=== PATIENT | male | born 1945 | race Caucasian/White ===

== ENCOUNTER 2018-05-09 11:41 | Emergency (ER) | payer MEDICARE, OTHER ==
[2018-05-09 11:49] VITALS: PULSE 70; RESP 18; TEMP 98.1
--- NOTE | 2018-05-09 12:17 | ED ---
General Adult HPI - General Chief complaint: Recheck/Abnormal Lab/Rx Stated complaint: Numbness legs Time Seen by Provider: 05/09/18 11:45 Source: patient, EMS, RN notes reviewed Mode of arrival: EMS Limitations: no limitations - History of Present Illness Initial comments: This a 72-year-old male who presents emergency Department stating he had a panic attack today. Patient states she's trying to wean himself off of Klonopin cold turkey. Patient states he got up today after being up all night having a cold sweats all night because he was nervous. Patient states he started reading really fast having tingling in his fingers and hands and did not want to do so he called EMS. In the meantime he took a half of one of his 2 mg Klonopin's and states it started to take effect on the way in and currently he is asymptomatic. Patient denies any chest pain difficulty breathing or shortness of breath. Patient denies any headache patient denies numbness and weakness however he does state his fingertips and toes are tingling. Patient denies any lightheadedness or dizziness. Patient denies any near syncopal episode. Patient states he was taking 2 mg at night and a half a milligram in the morning every day and he tried to wean himself off initially by not taking any and then more recently only taking them when he felt he needs them. - Related Data Home Medications Medication Instructions Recorded Confirmed Coral-3 Fatty Acids/Fish Oil [Fish 1 cap PO HS 11/19/14 05/09/18 Oil 1,000 mg Softgel] Rosuvastatin [Crestor] 10 mg PO HS 11/19/14 05/09/18 clonazePAM [KlonoPIN] 2 mg PO HS 11/19/14 05/09/18 Omeprazole [PriLOSEC] 20 mg PO HS 07/02/15 05/09/18 Calcium Carbonate/Vitamin D3 1 tab PO HS 07/03/15 05/09/18 [Calcium 600 + Vit D Tablet] clonazePAM [KlonoPIN] 1 mg PO DAILY 07/03/15 05/09/18 Allopurinol [Zyloprim] 100 mg PO HS 05/09/18 05/09/18 Previous Rx's Medication Instructions Recorded Lisinopril [Zestril] 20 mg PO HS #30 tab 07/03/15 clonazePAM [KlonoPIN] 2 mg PO TID #9 tab 05/09/18 Allergies Allergy/AdvReac Type Severity Reaction Status Date / Time acetaminophen [From Tylenol] Allergy Rash/Hives Verified 05/09/18 12:01 Review of Systems ROS Statement: Those systems with pertinent positive or pertinent negative responses have been documented in the HPI. ROS Other: All systems not noted in ROS Statement are negative. Past Medical History Past Medical History: Asthma, Coronary Artery Disease (CAD), Hyperlipidemia, Hypertension, Osteoarthritis (OA) Additional Past Medical History / Comment(s): gi bleed 2004 ,low testosterone, occupational asthma, tendonitis History of Any Multi-Drug Resistant Organisms: None Reported Past Surgical History: Heart Catheterization Past Anesthesia/Blood Transfusion Reactions: No Reported Reaction Past Psychological History: Anxiety Smoking Status: Former smoker Past Alcohol Use History: Daily Past Drug Use History: Marijuana - Past Family History Father Family Medical History: Diabetes Mellitus General Exam - General Exam Comments Initial Comments: GENERAL: Patient is well-developed and well-nourished. Patient is nontoxic and well- hydrated and is in no acute distress. ENT: Neck is soft and supple. No significant lymphadenopathy is noted. Oropharynx is clear. Moist mucous membranes. Neck has full range of motion without eliciting any pain. EYES: The sclera were anicteric and conjunctiva were pink and moist. Extraocular movements were intact and pupils were equal round and reactive to light. Eyelids were unremarkable. PULMONARY: Unlabored respirations. Good breath sounds bilaterally. No audible rales rhonchi or wheezing was noted. CARDIOVASCULAR: There is a regular rate and rhythm without any murmurs gallops or rubs. ABDOMEN: Soft and nontender with normal bowel sounds. No palpable organomegaly was noted. There is no palpable pulsatile mass. SKIN: Skin is clear with no lesions or rashes and otherwise unremarkable. NEUROLOGIC: Patient is alert and oriented x3. Cranial nerves II through XII are grossly intact. Motor and sensory are also intact. Normal speech, volume and content. Symmetrical smile. MUSCULOSKELETAL: Normal extremities with adequate strength and full range of motion. No lower extremity swelling or edema. No calf tenderness. LYMPHATICS: No significant lymphadenopathy is noted PSYCHIATRIC: Normal psychiatric evaluation. Patient at this point in time does not appear anxious always call and coherent and very reasonable Limitations: no limitations Course Vital Signs 08/28/18 11:47 Temperature 98.1 F Pulse Rate 70 Respiratory 18 Rate Blood Pressure 103/58 O2 Sat by Pulse 99 Oximetry Medical Decision Making - Medical Decision Making Patient is without any complaints currently and states this is a classic panic attack for him and he wasn't sure his Klonopin will help him quick enough so he came into the emergency department. Disposition Clinical Impression: Panic attack Disposition: HOME SELF-CARE Condition: Good Instructions: Anxiety (ED), Panic Disorder (ED), Panic Attack (ED) Prescriptions: clonazePAM [KlonoPIN] 2 mg PO TID #9 tab Is patient prescribed a controlled substance at d/c from ED?: Yes When asked, does pt state using other controlled substances?: No If prescribed controlled substance>3 days was MAPS reviewed?: Prescribed <3 Days If opioid is for acute pain is fill amount 7 days or less?: No Referrals: None,Stated [Primary Care Provider] - 1-2 days Time of Disposition: 12:18
[2018-05-09 12:30] VITALS: BP 121/59
== END 2018-05-09 12:30 | disposition home or self-care (01) ==
LOC: EC 11:41
DX: F41.0 Panic disorder [episodic paroxysmal anxiety] (principal); I25.10 Atherosclerotic heart disease of native coronary artery without angina pectoris; E78.5 Hyperlipidemia, unspecified; I10 Essential (primary) hypertension; Z87.891 Personal history of nicotine dependence; Z79.899 Other long term (current) drug therapy; Z88.6 Allergy status to analgesic agent; Z95.818 Presence of other cardiac implants and grafts
CPT/HCPCS: 99283

== ENCOUNTER → 2018-12-28 | Outpatient (CLI) | payer MEDICARE ==
--- NOTE | 2018-12-28 14:15 | US ---
EXAMINATION TYPE: US kidneys/renal and bladder DATE OF EXAM: 12/28/2018 COMPARISON: NONE CLINICAL HISTORY: R94.4 Abnormal results of kidney function studies. EXAM MEASUREMENTS: Right Kidney: 9.3 x 5.1 x 4.8 cm Left Kidney: 9.4 x 5.7 x 4.6 cm Post Void Residual Volume: 12.6 mL Right Kidney: small cortical cyst 0.8 x 0.7 x0.8 cm Left Kidney: No hydronephrosis or masses seen Bladder: wnl Bilateral Jets seen: left only Normal Post Void Residual: Yes There is no evidence for hydronephrosis at this point in time. No nephrolithiasis is seen. No daphne s are identified. The urinary bladder not greatly distended. Distal right ureter jet is not seen. Ao rta incidentally shows up to 3.6 cm aneurysm mid to distal aspect. Advise follow-up. Cortical thinnin g in both kidneys is present. IMPRESSION: No hydronephrosis is present. Cortical thinning bilaterally is consistent with product of chronic med ical renal disease. There is incidental AAA measuring up to 3.6 cm. Advise dedicated abdominal aorta ultrasound to better evaluate and characterize.
== END ==
LOC: RADUSWWP 13:23
PROVIDERS: ATTEND Family Medicine
DX: R94.4 Abnormal results of kidney function studies (principal)
CPT/HCPCS: 76770

== ENCOUNTER → 2019-01-11 | Outpatient (CLI) | payer MEDICARE ==
--- NOTE | 2019-01-11 08:06 | US ---
EXAMINATION TYPE: US duplex aorta DATE OF EXAM: 01/11/2019 COMPARISON: recent US CLINICAL HISTORY: I71.4 Abdominal aortic aneurysm; controlled HTN EXAM MEASUREMENTS: Abdominal Aorta: Proximal: 2.4cm Transverse Mid: 3.5 x 4.0cm x 7.5cm Distal: 3.6cm Transverse Bifurcation: 1.7cm A/P right HENRI; 1.5cm Transverse left HENRI Intimal wall thickening is noted throughout aorta and into HENRI bilaterally. IMPRESSION: There is a fusiform mid to distal abdominal aortic aneurysm measuring up to 3.6 x 3.4 cm and measuring 7.5 cm in length. There is no extent into the common iliac vasculature. Intimal wall th ickening and atherosclerosis is noted.
== END | disposition home or self-care (01) ==
LOC: RADUSWWP 07:07
PROVIDERS: ATTEND Family Medicine
DX: I71.4 Abdominal aortic aneurysm, without rupture (principal); I70.8 Atherosclerosis of other arteries
CPT/HCPCS: 93979